=== PATIENT | female | born 1950 | race Caucasian/White ===

== ENCOUNTER 2018-06-23 19:39 | Observation (INO) ==
--- NOTE | 2018-06-23 19:47 | Urgent Care Visit Notes ---
Disposition Clinical Impression: Syncope Disposition: Admitted As Inpatient Referrals: NONE,PCP [Primary Care Provider] - Time of Disposition: 22:10 History of Present Illness - General Stated Complaint: abd pain Time Seen by Provider: 06/23/18 19:40 Source: patient Mode of arrival: other (EMS) Limitations: no limitations Nursing Notes Reviewed: Yes Vital Signs Reviewed: Yes - History of Present Illness HPI Narrative: Patient ate dinner and had some lemonade and then sat in a chair and is lasting she remembers. She had a syncopal episode some point in the past as well similar to this but she never saw anybody for it. She has epigastric discomfort at this point and says she feels sweaty. 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 Duration: second(s) Prodromal Symptoms: lightheaded Context: at rest Injuries Sustained Associated with Event: none Current Symptoms: lightheaded, nausea, abdominal pain History: previous syncopal episode - Related Data Home Medications Medication Instructions Recorded Confirmed Atorvastatin [Lipitor] 40 mg PO HS 06/23/18 06/23/18 Lisinopril [Zestril] 40 mg PO DAILY 06/23/18 06/23/18 Ranitidine HCl [Acid Foundry Hand] 75 mg PO DAILY 06/23/18 06/23/18 hydroCHLOROthiazide 12.5 mg PO DAILY 06/23/18 06/23/18 [Hydrochlorothiazide] Allergies Allergy/AdvReac Type Severity Reaction Status Date / Time latex Allergy Itching Verified 06/23/18 19:50 promethazine [From Phenergan] Allergy Hives Verified 06/23/18 19:50 All systems ED: reviewed and negative except as stated. Review of Systems: As Per HPI Constitutional: Denies: fever, chills, weakness, weight change Eyes: Denies: eye pain, eye discharge, vision change ENT ED: Denies: ear pain, throat pain, dental pain, hearing loss, epistaxis, congestion, dysphagia Cardiovascular: Denies: chest pain, palpitations, dyspnea on exertion, edema, syncope Respiratory: Denies: cough, dyspnea, wheezes, hemoptysis, stridor Gastrointestinal: Reports: abdominal pain, nausea Genitourinary: Denies: dysuria, frequency, hematuria, discharge Musculoskeletal: Denies: back pain, neck pain, arthralgia, myalgia Integumentary: Denies: rash, abrasion, lesions Neurological: Denies: headache, weakness, numbness, paresthesias, confusion, abnormal gait, vertigo Psychiatric: Denies: anxiety, depression, suicidal thoughts, homicidal thoughts , auditory hallucinations, visual hallucinations Endocrine: Denies: fatigue Hematological/Lymphatic: Denies: easy bleeding, easy bruising Allergic/Immunologic: Denies: facial swelling, urticaria Past Medical History - Past Medical History Attestation: Yes The following information was validated with the patient. Source: patient, nursing notes reviewed Physical Exam - General Limitations: no limitations General appearance: alert, in no apparent distress - Head Head exam: normal inspection - Eye Eye exam: Present: normal appearance - ENT ENT exam: normal exam, normal oropharynx, mucous membranes moist, normal external ear exam - Neck Neck exam: Present: normal inspection, full ROM, trachea midline - Chest Chest inspection: Present: normal inspection, symmetric chest wall rise - Respiratory Respiratory exam: Present: normal lung sounds bilaterally - Cardiovascular Cardiovascular exam: Present: regular rate, normal rhythm, normal heart sounds - Neurological Exam Neurological exam: Present: alert, oriented X3, CN II-XII intact - Expanded Neurological Exam Patient oriented to: Present: person, place, time - Psychiatric Psychiatric exam: Present: normal affect - Skin Skin exam: Present: warm, dry, intact Syncope - MDM Narrative Medical decision making narrative: I reviewed the patient's medication list. I discussed the case with Dr. Morales who graciously accepts admission - Lab Data Result diagrams: 06/23/18 19:57 06/23/18 19:57 - Radiology Data Radiology results reviewed: Yes I reviewed the patient's radiology results. - EKG Data EKG attestation: Yes I reviewed and interpreted this EKG. EKG results narrative: EKG shows normal sinus rhythm with a rate of 66 bpm ME interval 140 ms QRS duration 81 ms. QT interval 427 ms QTc interval 440 ms R axis of -40 degrees to normal I reviewed the patient's medication list Course Course Narrative: I reviewed the patient's medication list.
[2018-06-23 20:05] LABS: Basophils # 0.1 K/mcL (0.0-0.2); Basophils % 0.6 %; Eosinophils # 0.1 K/mcL (0.0-0.6); Eosinophils % 0.8 %; Hematocrit 38.8 % (35.3-44.9); Hemoglobin 13.6 g/dL (11.5-15.4); Immature Granulocytes % 0.3 % (0-4); Lymphocytes # 3.7 K/mcL (0.6-4.6); Lymphocytes % 35.2 %; Mean Corpuscular HGB Conc 35.1 g/dL (31.6-35.5); Mean Corpuscular Hemoglobin 31.4 pg (28.0-33.3); Mean Corpuscular Volume 89.6 fL (83.0-100.0); Mean Platelet Volume 9.8 fL (9.4-12.4); Monocytes # 0.9 K/mcL (0.0-1.3); Monocytes % 8.1 %; Neutrophils # 5.9 K/mcL (1.6-8.9); Platelet Count 283 K/mcL (140-400); Red Blood Count 4.33 M/mcL (3.82-4.97); Red Cell Distribution Width 12.3 % (11.5-14.5)
[2018-06-23] MEDS ORDERED: *HR* Promethazine 25 MG/ML VIAL IVP ONE (20:17)
[2018-06-23] MEDS ORDERED: Prochlorperazine 10 MG/2 ML VIAL IVP ONE (20:18)
[2018-06-23 20:23] LABS: Alanine Aminotransferase 15 Units/L (7-52); Albumin 3.9 g/dL (3.5-5.7); Albumin/Globulin Ratio 1.5 (1.1-2.2); Alkaline Phosphatase 61 Units/L (34-104); Amylase 41 Units/L (29-103); Aspartate Amino Transferase 13 Units/L (13-39); BUN/Creatinine Ratio 15 (6-26); Bilirubin,Total 0.4 mg/dL (0.3-1.0); Blood Urea Nitrogen 20 mg/dL (8-23); Calcium 9.3 mg/dL (8.6-10.3); Carbon Dioxide 21 mEq/L (23-29); Chloride 105 mEq/L (98-107); Globulin 2.6 g/dL (2.4-3.5); Glucose 140 mg/dL (70-105); Lipase 64 Units/L (11-82); Osmolality,Calculated 293 (280-300); Potassium 3.1 mEq/L (3.5-5.1); Sodium 139 mEq/L (136-145); Total Protein 6.5 g/dL (6.4-8.9); eGFR For African Americans 48 (> 60); eGFR For Non-African Americans 40 (> 60)
[2018-06-23 20:26] LABS: Troponin I < 0.03 ng/mL (< 0.04)
[2018-06-23] MEDS ORDERED: Metoclopramide 10 MG/2 ML VIAL IVP ONE (20:48)
[2018-06-23 21:44] LABS: Bilirubin,Urine Negative (Negative); Blood,Urine Negative (Negative); Clarity,Urine Clear (Clear); Color,Urine Yellow (Yellow); Glucose,Urine (UA) Normal (Normal); Ketones,Urine Negative (Negative); Leukocyte Esterase,Urine Trace (Negative); Nitrite,Urine Negative (Negative); Protein,Urine 30 mg/dL (Neg-Trace); Urobilinogen,Urine Normal (Normal)
[2018-06-23 21:51] LABS: Bacteria,Urine Few per hpf (None-Few); RBC,Urine 0-3 per hpf (0-3); Squamous Epithelial Cell,Urine Few per lpf (None-Few)
[2018-06-23] MEDS ORDERED: Aspirin 81 MG TAB.CHEW PO ONE (23:41)
[2018-06-23] MEDS ORDERED: 0.9 % Sodium Chloride 1,000 ML IVC SCH (23:41)
[2018-06-23] MEDS ORDERED: Naloxone 0.4 MG/ML INJ IVP PRN (23:41)
[2018-06-24 06:28] LABS: Basophils % 0.3 %; Eosinophils # 0.1 K/mcL (0.0-0.6); Eosinophils % 0.7 %; Hematocrit 37.9 % (35.3-44.9); Hemoglobin 13.2 g/dL (11.5-15.4); Immature Granulocytes % 0.2 % (0-4); Lymphocytes # 2.5 K/mcL (0.6-4.6); Lymphocytes % 25.5 %; Mean Corpuscular HGB Conc 34.8 g/dL (31.6-35.5); Mean Corpuscular Hemoglobin 31.7 pg (28.0-33.3); Mean Corpuscular Volume 90.9 fL (83.0-100.0); Mean Platelet Volume 10.1 fL (9.4-12.4); Monocytes # 0.7 K/mcL (0.0-1.3); Monocytes % 7.2 %; Neutrophils # 6.5 K/mcL (1.6-8.9); Platelet Count 218 K/mcL (140-400); Red Blood Count 4.17 M/mcL (3.82-4.97); Red Cell Distribution Width 12.4 % (11.5-14.5); Segmented Neutrophils % 66.1 %
[2018-06-24 06:55] LABS: BUN/Creatinine Ratio 18 (6-26); Blood Urea Nitrogen 19 mg/dL (8-23); Calcium 8.8 mg/dL (8.6-10.3); Carbon Dioxide 27 mEq/L (23-29); Chloride 105 mEq/L (98-107); Glucose 102 mg/dL (70-105); Osmolality,Calculated 288 (280-300); Potassium 3.6 mEq/L (3.5-5.1); Sodium 138 mEq/L (136-145); eGFR For African Americans > 60 (> 60); eGFR For Non-African Americans 54 (> 60)
[2018-06-24] MEDS ORDERED: Lisinopril 20 MG TABLET PO SCH ×2 (09:00→12:55)
[2018-06-24] MEDS ORDERED: hydroCHLOROthiazide 25 MG TABLET PO SCH (09:00)
[2018-06-24] MEDS ORDERED: Famotidine 20 MG TABLET PO SCH (09:00)
--- NOTE | 2018-06-24 12:27 | Internal Med History&Physical ---
Date of Encounter: 06/24/18 Time of Encounter: 12:25 Assessment and Plan (1) Syncope Current visit: Yes Status: Acute Patient presenting chief complaint is syncope, appears to be a seated position after the consumption of an alcoholic drink that has a content of alcohol between 4-7%. Patient does report a prior history of this in the past in a similar fashion. No prior cardiovascular acute events in the past, but has chronic hypertension that is treated with lisinopril and hydrochlorothiazide without any prior history of GA or CVA. Appears to have a BP goal of less than 150/90 but reports systolics in the 110s to 120s. Patient was observed overnight, and was noted to have bradycardic heart rates > 50s. She is not on any beta blockers or any other medication that would cause this. She does not endorse any recent changes on her blood pressure medications. No dysrhythmias observed on EKG admission nor telemetry overnight. Patient remained asymptomatic during her admissions. Patient is expressing desire to be discharged, and denied any symptoms on ROS. It is possible that the patient may have a cardiogenic reason for her syncope versus neurologic versus other such as a vasovagal following alcoholic consumption After observation, it is recommended that she follows up with her primary care for further testing; EEG as well as repeat echo and a heart monitor 30 days It is also recommended that she follows up with cardiology and neurology. Patient was counseled on avoiding alcohol until a clear diagnosis is reached, and the patient was counseled on quitting smoking. Qualifiers: Syncope type: unspecified Qualified Code(s): R55 - Syncope and collapse (2) Hypertension Current visit: Yes Status: Acute Tubal antihypertensive medications with lisinopril and hydrochlorothiazide. Patient's appear to have the blood pressure with systolics in the 110s during her hospitalizations. Elected to lower her lisinopril from 40 mg to 30mg. She was dispensed both 10 mg and 20 mg Qualifiers: Hypertension type: essential hypertension Qualified Code(s): I10 - Essential (primary) hypertension (3) Diverticulosis Current visit: Yes Status: Acute Per CT findings, as well as reported by the patient's. No fevers and no complications at this time. Qualifiers: Diverticulosis site: diverticulosis of large intestine Diverticulosis bleeding: diverticulosis without bleeding Qualified Code(s): K57.30 - Diverticulosis of large intestine without perforation or abscess without bleeding (4) GERD (gastroesophageal reflux disease) Current visit: Yes Status: Acute Patient was CT finding consistent with a hiatal hernia. Patient was continued on Pepcid, from her home ranitidine Qualifiers: Esophagitis presence: esophagitis presence not specified Qualified Code(s) : K21.9 - Gastro-esophageal reflux disease without esophagitis (5) Osteoporosis Current visit: Yes Status: Acute Patient on vitamin D and calcium; we will continue Qualifiers: Osteoporosis type: other Presence of current pathological fracture: unspecified Qualified Code(s): M81.8 - Other osteoporosis without current pathological fracture (6) Ulcerative colitis Current visit: Yes Status: Acute Per patient, patient to follow-up with primary care Stable GI at this time Qualifiers: Ulcerative colitis location: unspecified ulcerative colitis location Digestive disease complication type: without complication Qualified Code(s): K51.90 - Ulcerative colitis, unspecified, without complications (7) Pre-diabetes Current visit: Yes Status: Acute Per patient's, to follow-up with primary care Continue Lipitor for hyperlipidemia Internal Medicine - H&P: HPI Chief complaint: Syncope Admitted From: Home Plans for Post Hospital Care: Home History of present illness: Ms. Sadler is a 67 year old female with past medical history of syncope in the past, hypertension, GERD, osteopenia, prediabetes, ?ulcerative colitis and strong family history of 7 with both brothers passing away at age of 45 and 42 after possible exertion and a strong family history of high blood pressure who came in yesterday to the hospital for a diagnosis of syncope. Patient reports that she was at a picnic and consumed food and alcoholic beverage"hard lemonade" which appears to be consistent of 4-7% consumer insight manager contents at which she felt sweaty, and vision became hazy and lost consciousness. This was witnessed by the daughter as well as other family members who did not report any falls or hits to the floor, patient remained seated with her neck fallen down. Patient's daughter reported no seizure-like activities, but the patient reported urinary incontinence. She was told she had bacteriuria, none significant to warrant any treatment at this time per ED physician. She denied any dysuria, suprapubic tenderness nor flank pain. Patient also denied any fevers or nausea or other GI symptoms at this time. She did reports an epigastric pain as well as a GERD-like symptoms when she was admitted yesterday , but no longer present today. Patient does reports a prior syncope that was witnessed by her daughter possibly 1-2 years ago, similar in events to this one after consuming alcoholic beverage. Patient reports that she has had multiple workups in the past including a cardiac Echo that was normal for any anatomical abnormalities per her, as well as 3 stress testing one of which was pharmacologic in 2014. She also reports a prior history of meningitis 2, and seeing cardiology for possible endocarditis which was ruled out. She had a heart monitor when she was hospitalized for 48 hours and never been told that she has any tabs of dysrhythmias. She also denied any heart palpitations or chest pain prior to syncope. She denied any personal history of CVA or GA in the past. And she also denied having any heart monitors as an outpatient. She does report having bradycardia in the past, and her blood pressures been controlled for the most part with 2 medications including lisinopril at 40 mg and hydrochlorothiazide which she takes at night. She does not report any side effects of these medications, but does report dizziness when her medications are altered. Reports compliance with medications. Patient does not report any history of electroencephalograms in the past nor having any history of seizures. Past Med Surg Social Fam HX - Past Medical History Medical history: GERD, hyperlipidemia, hypertension, syncope, other (Osteopenia and hx of X2 meningitis ) Additional medical history: Pre-diabetic. Pancreatitis. Psychiatric history: no psych history - Past Surgical History Surgical History: hysterectomy Additional surgical history: Sinus surgery. - Social History Smoking Status: Current some day smoker Smokeless Tobacco Status: No Alcohol use: none Drug use: none - Family History Mother Living Status: Father Living Status: Hx Family Cardiac Disorders: Yes (HTN) Brother Age at : 45 (Sudden, ?Mi related) Internal Medicine - H&P: Meds Atorvastatin [Lipitor] 40 mg PO HS 06/23/18 [History] Lisinopril [Zestril] 40 mg PO DAILY 06/23/18 [History] Ranitidine HCl [Acid Patrol Community Service Officer] 75 mg PO DAILY 06/23/18 [History] hydroCHLOROthiazide [Hydrochlorothiazide] 12.5 mg PO DAILY 06/23/18 [History] Calcium/Minerals/D3/K2/Silicon [Advanced Calcium Formula Tab] 1 each PO DAILY [History] Cholecalciferol (Vitamin D3) [Vitamin D] 400 unit PO DAILY 06/24/18 [History] Mv,Calcium,Min/Iron/Folic/Vitk [Multi For Her Tablet] 1 each PO DAILY 06/24/18 [ History] 3 Allergy/AdvReac Type Severity Reaction Status Date / Time latex Allergy Itching Verified 06/23/18 19:50 promethazine [From Phenergan] Allergy Hives Verified 06/23/18 19:50 All Systems PM: A 10-system review of systems was performed and is negative for pertinent findings except as documented above in the HPI. - Constitutional Constitutional: no excessive sweating, no fever(s), no falls - EENT Eyes: no blurry vision, no change in vision, no pain Nose, mouth and throat: no nasal congestion, no post-nasal drip, no sinus pain, no sinus pressure, no sore throat - Cardiovascular Cardiovascular ROS IM: syncope, no chest pain, no claudication, no edema - Respiratory Respiratory: no cough, no wheezing, no chest congestion - Gastrointestinal Gastrointestinal: no abdominal pain, no diarrhea, no nausea, no vomiting - Genitourinary Genitourinary: no change in urinary stream, no difficulty urinating, no difficulty voiding, no dysuria, no flank pain, no urinary frequency, no urinary hesitancy, no urinary incontinence - Musculoskeletal Musculoskeletal ROS IM: no back pain, no myalgias, no numbness, no tingling - Neurological Neurological ROS: no abnormal gait, no abnormal hearing, no headache(s), no paresthesias, no tingling, no weakness - Psychiatric Psychiatric: memory loss, no panic attacks - Endocrine Endocrine IM: as per HPI - Hematologic/Lymphatic Hematologic/Lymphatic: as per HPI - Allergic/Immunologic Allergic/Immunologic: seasonal rhinorrhea - Constitutional Vitals: Temp Pulse Resp BP Pulse Ox 97.7 F 63 16 116/66 94 06/24/18 08:00 06/24/18 08:00 06/24/18 08:00 06/24/18 08:00 06/24/18 09:40 - Head Head exam: Present: atraumatic, normocephalic - Eye Eye exam: Present: PERRL, conjuntiva pink, sclera anicteric Pupils: Present: PERRL - Neck Neck exam general surgery: Present: supple, trachea midline. Absent: lymphadenopathy - Respiratory Respiratory exam: Present: CTAB. Absent: accessory muscle use, rales, rhonchi, wheezes - Cardiovascular Cardiovascular exam: Present: RRR, +S1, +S2. Absent: diastolic murmur, gallop, rubs, systolic murmur - GI/Abdominal GI/Abdominal exam: Present: normal bowel sounds, soft, no peritoneal signs. Absent: distended, tenderness - Extremities Exam Extremities exam: Present: warm, radial pulses palpable and symmetrical. Absent : calf tenderness, cyanotic, pedal edema - Neurological Exam Neurological exam: Present: CN II-XII intact, oriented X3, no focal deficits. Absent: pronater drift, facial droop, speech deficit - Skin Skin exam: Present: dry, intact Internal Med - H&P Results - Labs CBC & Chem 7: 06/24/18 06:20 06/24/18 06:20 Labs: Short CBC 06/24/18 Range/Units 06:20 WBC 9.9 (4.3-11.1) K/mcL Hgb 13.2 (11.5-15.4) g/dL Hct 37.9 (35.3-44.9) % Plt Count 218 (140-400) K/mcL Neutrophils # 6.5 (1.6-8.9) K/mcL BMP 06/24/18 06:20 Sodium 138 Potassium 3.6 Chloride 105 Carbon Dioxide 27 BUN 19 Creatinine 1.03 Glucose 102 Calcium 8.8 Cardiac Enzymes 06/24/18 06/24/18 Range/Units 00:33 06:20 Troponin I < 0.03 < 0.03 (< 0.04) ng/mL
[2018-06-24 12:39] VITALS: BP 133/57
--- NOTE | 2018-06-24 12:52 | Discharge Summary ---
- NOTES TO OUTPATIENT PROVIDER Notes to Outpatient Provider: 1. EEG. 2. ECHO. 3. Heart Monitor X30 days. 4. Neurology consult. 5. Cardiologyy consult. hospital changes: decreased Lisinopril from 40 -30mg. Transition of care appointment with PCP to review BP readings, with goal of <150/90 and to carry out the hospital discharge recommendations for outpatient workup Date of Encounter: 06/24/18 Time of Encounter: 12:50 - Discharge Diagnosis (1) Syncope Priority: Primary Status: Acute Comments: Patient presenting chief complaint is syncope, appears to be a seated position after the consumption of an alcoholic drink that has a content of alcohol between 4-7%. Patient does report a prior history of this in the past in a similar fashion. No prior cardiovascular acute events in the past, but has chronic hypertension that is treated with lisinopril and hydrochlorothiazide without any prior history of NM or CVA. Appears to have a BP goal of less than 150/90 but reports systolics in the 110s to 120s. Patient was observed overnight, and was noted to have bradycardic heart rates > 50s. She is not on any beta blockers or any other medication that would cause this. She does not endorse any recent changes on her blood pressure medications as well. No dysrhythmias observed on EKG admission nor telemetry overnight. Patient remained asymptomatic during her admissions. Prior ER workup was also reviewed and included a head, chest and abdominal none contrast CTs that only showed bronchial thickening and hiatal hernia, as well prior diverticulosis with out signs of infection. It is possible that the patient may have a cardiogenic reason for her syncope versus neurologic versus other such as a vasovagal following alcoholic consumption After observation for 24 hours, it is recommended that she follows up with her primary care for further testing; EEG as well as repeat echo and a heart monitor 30 days. It is also recommended that she follows up with cardiology for syncope and bradycardia and neurology for syncope. Patient was counseled on avoiding alcohol until a clear diagnosis is reached, and the patient was counseled on quitting smoking. We have lowered her Lisinopril from 40 to 30mg. Possible she can be on 20mg and remain with BP goal of <150/90. Qualifiers: Syncope type: unspecified Qualified Code(s): R55 - Syncope and collapse (2) DENZEL (acute kidney injury) Priority: Primary Status: Acute Comments: Now resolved with Cr on admision of 1.3 and overnight repeat at 1 (Mild) PO hydration, IV hydration with NS and observation Most likely due to pre-renal at this time in the setting of Hypokalemia All has corrected f/u with pcp (3) Hypokalemia Priority: Primary Status: Acute Comments: now resolved on repeat blood testing over night NS IV given (4) Hypertension Priority: Secondary Status: Acute Comments: Dual antihypertensive medications with lisinopril and hydrochlorothiazide. Patient's appear to have the blood pressure with systolics in the 110s during her hospitalizations. Elected to lower her lisinopril from 40 mg to 30mg. 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; pt endorsed endoscopy 2 years ago recommendation to continue to f/u with pcp Qualifiers: Esophagitis presence: esophagitis presence not specified Qualified Code(s) : K21.9 - Gastro-esophageal reflux disease without esophagitis (7) Osteoporosis Priority: Secondary Status: Acute Comments: Per pt; continue vit D and calcium Qualifiers: Osteoporosis type: other Presence of current pathological fracture: unspecified Qualified Code(s): M81.8 - Other osteoporosis without current pathological fracture (8) Ulcerative colitis Priority: Secondary Status: Acute Comments: per pt history Also a smoker, and was counseled on quieting today Has failed quitting many times Also denied any history of other types of infectious colitis such as c. diff Qualifiers: Ulcerative colitis location: unspecified ulcerative colitis location Digestive disease complication type: without complication Qualified Code(s): K51.90 - Ulcerative colitis, unspecified, without complications (9) Pre-diabetes Priority: Secondary Status: Acute Comments: per-pt history continue to f/u with pcp (10) Hyperlipidemia Priority: Secondary Status: Acute Comments: continued lipitor f/u with pcp Qualifiers: Hyperlipidemia type: unspecified Qualified Code(s): E78.5 - Hyperlipidemia , unspecified Hospital course: See problem list - Time Spent with Patient Total time spent providing and/or coordinating discharge services: Greater than 30 minutes - Discharge Medications Prescriptions: Lisinopril [Zestril] 30 mg PO DAILY #30 tablet Home Medications: Atorvastatin [Lipitor] 40 mg PO HS 06/23/18 [History] Ranitidine HCl [Acid Material Engineer] 75 mg PO DAILY 06/23/18 [History] hydroCHLOROthiazide [Hydrochlorothiazide] 12.5 mg PO DAILY 06/23/18 [History] Calcium/Minerals/D3/K2/Silicon [Advanced Calcium Formula Tab] 1 each PO DAILY [History] Cholecalciferol (Vitamin D3) [Vitamin D3] 400 unit PO DAILY 06/24/18 [History] Lisinopril [Zestril] 30 mg PO DAILY #30 tablet 06/24/18 [Rx] Mv,Calcium,Min/Iron/Folic/Vitk [Multi For Her Tablet] 1 each PO DAILY 06/24/18 [ History] Allergies/Adverse Reactions: 3 Allergy/AdvReac Type Severity Reaction Status Date / Time latex Allergy Itching Verified 06/23/18 19:50 promethazine [From Phenergan] Allergy Hives Verified 06/23/18 19:50 Date of admission: 06/23/18 23:09 - Constitutional Vitals: Temp Pulse Resp BP Pulse Ox 98.5 F 56 16 133/57 95 06/24/18 12:00 06/24/18 12:00 06/24/18 12:00 06/24/18 12:00 06/24/18 12:00 - Head Head exam: Present: atraumatic, normocephalic - Eye Eye exam: Present: PERRL, conjuntiva pink, sclera anicteric Pupils: Present: PERRL - Neck Neck exam general surgery: Present: supple, trachea midline. Absent: lymphadenopathy - Respiratory Respiratory exam: Present: CTAB. Absent: accessory muscle use, rales, rhonchi, wheezes - Cardiovascular Cardiovascular exam: Present: RRR, +S1, +S2. Absent: diastolic murmur, gallop, rubs, systolic murmur - GI/Abdominal GI/Abdominal exam: Present: normal bowel sounds, soft, no peritoneal signs. Absent: distended, tenderness - Extremities Exam Extremities exam: Present: warm, radial pulses palpable and symmetrical. Absent : calf tenderness, cyanotic, pedal edema - Neurological Exam Neurological exam: Present: CN II-XII intact, oriented X3, no focal deficits. Absent: pronater drift, facial droop, speech deficit - Skin Skin exam: Present: dry, intact - Patient Status Disposition: Home, Self-Care Condition: Good Functional capacity at discharge: independent ambulation Overall status at discharge: patient is back to baseline - Discharge Instructions Instructions: Syncope (GEN), Diverticulitis (DC), Syncope (DC), Calcium and Osteoporosis (DC), Chronic Hypertension (DC) Follow Up With: Amy Loya [Other] Forms: ED Satisfaction Letter Additional Instructions: Please follow up with your primary care within 7 days continue to record your blood pressure readings daily before you follow up with your primary care Please reduce your lisinopril to 30mg daily starting tomorrow At this time, when you follow up with your primary care; My recommendation is to do the follow up at minimum 1. EEG order 2. Echo order 3. Heart Monitor for 30 days 4. Seeing cardiology 5. Seeing Neurology Your primary care will follow up on your blood pressure and ensure that it is somewhat higher than you have it now to avoid any low blood pressure contributing to your loss of consciousness AT THIS TIME; PLEASE AVOID ALCOHOL - Diet and Activity Diet: regular diet
--- NOTE | 2018-06-26 08:58 | Electrocardiograph Report ---
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
--- NOTE | 2018-06-26 09:01 | Electrocardiograph Report ---
[place] [id number] Test Date: 2018-06-24 Pat Name: Odalys Sadler Department: 2001 Room: 115 Gender: F [employer]ing [employer]: Tb : 1950 Requested By: Lisette Glass Order Number: [id number] Reading MD: Sameer Ko Measurements Intervals [place] Rate: 61 P: 49 UT: 140 QRS: -3 QRSD: 81 T: 30 QT: 401 QTc: 403 Interpretive Statements SINUS RHYTHM LOW QRS VOLTAGE IN PRECORDIAL LEADS Electronically Signed On 06-26-2018 9:00:04 EDT by Sameer Ko
== END 2018-06-24 13:50 | disposition home or self-care (01) ==
LOC: EMEROOGRE 19:39 → INPGRE 19:39
PROVIDERS: ADMIT Internal Medicine; ATTEND Internal Medicine